=== PATIENT | female | born 1940 | race Caucasian/White ===

== ENCOUNTER → 2018-01-09 08:53 | Outpatient (CLI) | payer MEDICARE, BC, SELFPAY ==
--- NOTE | 2018-01-09 09:03 | XR_ITS ---
EXAM: XR thoracic spine 3V HISTORY: ITS.REASON: H/O BREAST CA,THORACIC AND LUMBAR PAIN COMPARISON: 10/13/2010 FINDINGS: Normal alignment. No fracture or dislocation. No lytic or blastic change. There is mild lower thoracic scoliosis with marginal osteophytes in the lower thoracic spine. Slight wedging noted at T11 chronic. No obvious bony destructive process. IMPRESSION: Thoracic spondylosis, no acute finding. No destructive process evident
--- NOTE | 2018-01-09 09:03 | XR_ITS ---
EXAM: XR lumbar spine min 4V HISTORY: Low back pain, history of breast cancer ORDERING PHYSICIAN: Steven Perez PATIENT AGE: 77 years COMPARISON: 11/10/2015 FINDINGS: Normal alignment. No fracture or dislocation. No lytic or blastic change. Mild dextroscoliosis. Degenerative disc disease L4-L5 and L5-S1 with small anterior osteophytes at L4, L5, and S1. Mild facet arthritic changes at L4-5 and L5-S1. No obstructive process apparent. Unremarkable SI joints. IMPRESSION: Lumbar spondylosis with mild scoliosis, no acute finding
== END ==
PROVIDERS: PCP Internal Medicine; Visit Provider Internal Medicine
DX: M54.6 Pain in thoracic spine (principal); M54.5 Low back pain; Z85.3 Personal history of malignant neoplasm of breast
CPT/HCPCS: 72072; 72110

== ENCOUNTER → 2018-02-10 08:02 | Outpatient (POV) | payer MEDICARE, BC, SELFPAY ==
[2018-02-10 09:46] LABS: Alanine Aminotransferase 19 U/L (12-78); Albumin Level 4.1 gm/dL (3.4-5.0); Albumin/Globulin Ratio 1.4 (1.1-1.8); Alkaline Phosphatase 71 U/L (46-116); Anion Gap 12.1 mEq/L (5-15); Aspartate Amino Transferase 17 U/L (15-37); Bilirubin,Total 0.5 mg/dL (0.2-1.0); Blood Urea Nitrogen 12 mg/dL (7-18); Calcium 9.5 mg/dL (8.5-10.1); Carbon Dioxide 29 mmol/L (21.0-32.0); Chloride 104 mmol/L (98-107); Creatinine,Serum 0.76 mg/dL (0.55-1.02); Estimated Glomerular Filt Rate 74 ml/min (>60); GFR (African American) 89 ML/MIN (>60); Glucose 92 mg/dL (74-106); Potassium 4.1 mmoL/L (3.5-5.1); Sodium 141 mmol/L (136-145); Total Protein,Serum 7.1 gm/dL (6.4-8.2)
[2018-02-10 10:18] LABS: Basophils % 0.5 % (0.1-2.0); Eosinophils # 0.1 K/mm3 (0.0-0.4); Eosinophils % 2.5 % (0.1-12.0); Hemoglobin 13.3 g/dL (12.2-16.2); Lymphocytes # 1.3 K/mm3 (0.7-4.5); Mean Corpuscular HGB Conc 33.3 g/dL (31.8-35.4); Mean Corpuscular Hemoglobin 29.9 pg (27.0-31.2); Mean Corpuscular Volume 89.8 fl (81-99); Mean Platelet Volume 7.2 fl (7.4-10.4); Monocytes # 0.3 K/mm3 (0.1-1.0); Neutrophils % 55.1 % (37.0-80.0); Platelet Count 257 K/mm3 (142-424); Red Blood Count 4.45 M/mm3 (4.20-5.40); Red Cell Distribution Width 13.4 % (11.5-17.5); White Blood Count 3.7 K/mm3 (4.8-10.8)
== END ==
PROVIDERS: Visit Provider Nurse Practitioner Acute Care
DX: B18.2 Chronic viral hepatitis C (principal)
CPT/HCPCS: 36415; 80053; 85025; 87522

== ENCOUNTER → 2018-02-28 10:15 | Outpatient (CLI) | payer MEDICARE, BC, SELFPAY ==
[2018-03-05 06:15] LABS: ALT (SGPT) P5P 10 IU/L (0-40); Alpha 2-Macroglobulins, Qn 256 mg/dL (110-276); Apolipoprotein A-1 166 mg/dL (116-209); Bilirubin, Total 0.3 mg/dL (0.0-1.2); GGT 8 IU/L (0-60); Haptoglobin 109 mg/dL (34-200); Necroinflammat Activity Grade A0-No activity (.); Necroinflammat Activity Score 0.02 (0.00-0.17)
== END ==
PROVIDERS: Visit Provider Nurse Practitioner Acute Care
DX: B18.2 Chronic viral hepatitis C (principal)
CPT/HCPCS: 36415

== ENCOUNTER → 2018-04-08 14:30 | Outpatient (CLI) | payer MEDICARE, BC, SELFPAY ==
--- NOTE | 2018-04-08 14:32 | MR_ITS ---
MR shoulder LT wo con HISTORY:Left shoulder pain with limited range of motion ITS.REASON: LEFT SHOULDER PAIN ORDERING PHYSICIAN: Steven Perez PATIENT AGE: 77 years Comparison: None TECHNIQUE: Standard multiplanar multiecho sequences are performed without contrast. FINDINGS: There is full thickness tear of the anterior aspect of the supraspinatus tendon with retraction of the musculotendinous fibers. The posterior aspect of the supraspinatus tendon does appear intact. The subscapularis, infraspinatus, and teres minor tendons appear intact. No labral tear. The bicipital tendon is in place. Small amount fluid in the subdeltoid region and subacromial area. Mild hypertrophic changes are present at the acromioclavicular joint with hypertrophic change along the inferior surface of the acromion with subacromial stenosis. No fracture or dislocation. Increased T2 signal involving the acromioclavicular joint. There are osteoarthritic changes of the glenohumeral joint. There is a small amount fluid in the shoulder joint. IMPRESSION: 1. Full-thickness tear involves the anterior aspect of the supraspinatus tendon with mild retraction of the musculotendinous fibers 2. 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
== END ==
PROVIDERS: Family Provider Internal Medicine; Visit Provider Internal Medicine
DX: M25.512 Pain in left shoulder (principal)
CPT/HCPCS: 73221

== ENCOUNTER → 2018-05-22 09:00 | Outpatient (CLI) | payer MEDICARE, BC, SELFPAY ==
--- NOTE | 2018-05-22 09:04 | XR_ITS ---
XR shoulder LT min 2V HISTORY: ITS.REASON: left shoulder pain ORDERING PHYSICIAN: Gerard Helm MD PATIENT AGE: 77 years Comparison: 04/15/2015 FINDINGS: Mild osteoarthritic changes are present at the glenohumeral joint. There is a type II acromium curving distally with mild subacromial stenosis. No fracture or dislocation. No other significant anomalies. IMPRESSION: Type II acromion with subacromial stenosis and osteoarthritic change of the glenohumeral joint
== END ==
PROVIDERS: PCP Internal Medicine; Visit Provider Orthopaedic Surgery
DX: M25.512 Pain in left shoulder (principal)
CPT/HCPCS: 73030

== ENCOUNTER → 2019-10-13 13:46 | Outpatient (CLI) | payer MEDICARE, BC, SELFPAY ==
--- NOTE | 2019-10-13 13:55 | XR_ITS ---
PROCEDURE: XR CHEST 2V CLINICAL HISTORY: dyspnea COMPARISON: No exams were available for comparison FINDINGS: The cardiomediastinal silhouette and pulmonary vascularity are within normal limits. The lungs are clear without infiltrates, suspicious nodules, or pleural effusions. Surgical clips are present along the left hemithorax laterally and left axillary region. There is mild thoracic curvature convex left and lumbar curvature convex right IMPRESSION: No acute findings. Dictated by: Viktor German MD 10/13/2019 14:48 Electronically signed by Viktor German MD in [place] 10/13/2019 14:48
== END ==
PROVIDERS: PCP Internal Medicine; Visit Provider Physician Assistant
DX: R06.00 Dyspnea, unspecified (principal); R07.9 Chest pain, unspecified
CPT/HCPCS: 71046

== ENCOUNTER → 2019-10-19 12:51 | Outpatient (CLI) | payer MEDICARE, BC, SELFPAY ==
--- NOTE | 2019-10-19 12:52 | CA_ITS ---
APPROVED REPORT EXAM: Comprehensive 2D, Doppler, and color-flow Echocardiogram Best Worker: Darlene Cespedes RVT Ht: 5 ft 0 in Wt: 124lbs BSA: 1.52 BP: 124/69 mmHg Indications: Chest Pain, Shortness of Breath,Lt mastectomy-breast ca,Hepatitis M-Mode Dimensions RVDd 2.00 cm (0.9-2.6) LVDd 4.00 cm (3.5-5.7) LVDs 2.93 cm (3.5-5.7) IVSd 1.14 cm (0.6-1.1) PWd 0.93 cm (0.6-1.1) EF (Teich) 52.90% FS 26.80% EDV (Teich) 70.00 mL ESV (Teich) 33.00 mL LV Diastology E/A Ratio 0.83 Mitral Valve MV A Velocity 63.00 (40-130 cm/s) Left Ventricle Left atrium is normal size, left ventricle is normal size, left ventricle wall thickness is upper limit of the normal, there is preserved left ventricular systolic function, visually estimated ejection fraction 55% with no regional wall motion abnormality. Grade 1 diastolic dysfunction seen without tissue Doppler evidence of raise left atrial pressure. Right Ventricle Right atrium is normal size, right ventricle is qualitatively mildly enlarged with normal contractility. Aortic Valve Aortic valve is minimally thickened and fibrosed, there is no aortic stenosis, there is mild aortic insufficiency. Mitral Valve Mitral valve is grossly normal, there is mild mitral regurgitation. Tricuspid Valve Tricuspid valve is grossly normal, there is mild tricuspid regurgitation, calculated right ventricular systolic pressure is within normal range. Pulmonic Valve Pulmonic valve is poorly visualized. Great Vessels Aortic root is normal size. Pericardium No significant pericardial effusion noted. Conclusion 1. Normal left ventricular size, preserved left ventricular systolic function, visually estimated ejection fraction 55% with no regional wall motion abnormality, grade 1 diastolic dysfunction seen without tissue Doppler evidence of raise left atrial pressure. 2. Qualitatively mildly enlarged right ventricle with normal contractility. 3. Mild aortic, mild mitral and tricuspid regurgitation. Calculated right ventricular systolic pressure is within normal range. 4. No significant pericardial effusion noted. Electronically signed by : Bebo Hays, 10/20/2019 06:50:28
== END ==
PROVIDERS: PCP Internal Medicine; Visit Provider Physician Assistant
DX: R06.00 Dyspnea, unspecified (principal); R07.9 Chest pain, unspecified
CPT/HCPCS: 93306

== ENCOUNTER → 2020-04-11 08:37 | Outpatient (CLI) | payer MEDICARE, BC, SELFPAY ==
[2020-04-11 09:20] LABS: Basophils % 0.3 % (0.1-2.0); Eosinophils # 0.1 K/mm3 (0.0-0.4); Eosinophils % 1.8 % (0.1-12.0); Hematocrit 37.6 % (37.0-47.0); Hemoglobin 12.4 g/dL (12.2-16.2); Lymphocytes # 1.4 K/mm3 (0.7-4.5); Lymphocytes % 29.6 % (10-50); Mean Corpuscular HGB Conc 33.1 g/dL (31.8-35.4); Mean Corpuscular Hemoglobin 29.8 pg (27.0-31.2); Mean Corpuscular Volume 90.2 fl (81-99); Mean Platelet Volume 7.4 fl (7.4-10.4); Monocytes # 0.3 K/mm3 (0.1-1.0); Monocytes % 5.4 % (1.7-9.3); Platelet Count 257 K/mm3 (142-424); Red Blood Count 4.17 M/mm3 (4.20-5.40); Red Cell Distribution Width 13.9 % (11.5-17.5); White Blood Count 4.7 K/mm3 (4.8-10.8)
[2020-04-11 10:01] LABS: Chloride 100 mmol/L (98-107); Potassium 4.4 mmoL/L (3.5-5.1); Sodium 137 mmol/L (136-145)
[2020-04-11 10:04] LABS: Alanine Aminotransferase 11 U/L (12-78); Albumin Level 4.2 g/dl (3.5-5.0); Albumin/Globulin Ratio 1.7 (1.1-1.8); Alkaline Phosphatase 70 U/L (38-126); Anion Gap 11.4 mEq/L (5-15); Aspartate Amino Transferase 24 U/L (14-36); Bilirubin,Total 0.5 mg/dl (0.2-1.3); Blood Urea Nitrogen 14 mg/dl (7-17); Carbon Dioxide 30 mmol/L (22.0-30.0); Cholesterol 196 mg/dl (140-200); Estimated Glomerular Filt Rate 81 ml/min (>60); GFR (African American) 97 ML/MIN (>60); Globulin 2.5 g/dL (1.3-3.2); Total Protein,Serum 6.7 g/dl (6.3-8.2); Triglycerides 64 mg/dl (30-150); VLDL Cholesterol 13 mg/dL (0-40)
[2020-04-11 10:05] LABS: Calcium 9.7 mg/dl (8.4-10.2); Chol/HDL Ratio 2.1 (1-3.5); Glucose 91 mg/dl (74-100); HDL Cholesterol 93 mg/dl (40-60)
[2020-04-11 10:16] LABS: Direct LDL Cholesterol 84.92 mg/dL (100-129)
== END ==
PROVIDERS: Visit Provider Internal Medicine
DX: G60.9 Hereditary and idiopathic neuropathy, unspecified (principal); M81.0 Age-related osteoporosis without current pathological fracture; Z86.19 Personal history of other infectious and parasitic diseases; Z79.899 Other long term (current) drug therapy
CPT/HCPCS: 36415; 80053; 80061; 85025

== ENCOUNTER 2020-10-21 11:04 | Emergency (ER) | payer MEDICARE, BC, SELFPAY ==
[2020-10-21 11:29] VITALS: BP 93/55; PULSE 92; RESP 20; TEMP 37.4; O2SAT 95; BMI 23.4
[2020-10-21 11:35] VITALS: BP 94/47; PULSE 92; RESP 18; TEMP 37.4; O2SAT 95; BMI 21.9
--- NOTE | 2020-10-21 11:44 | XR_ITS ---
PROCEDURE: XR CHEST 2V CLINICAL HISTORY: cough COMPARISON: CR XR CHEST 2V from 10/13/2019 FINDINGS: The cardiomediastinal silhouette and pulmonary vascularity are within normal limits. There is patchy infiltrate in the left lower lobe. Thoracic scoliosis convex left. Surgical clips overlying the left lower chest laterally. IMPRESSION: Left lower lobe pneumonia Dictated by: Viktor eGrman MD 10/21/2020 13:30 Viktor German MD in [place] 10/21/2020 13:30
[2020-10-21 12:26] LABS: UTC Influenza A Antigen Negative (Negative); UTC Influenza B Antigen Negative (Negative)
--- NOTE | 2020-10-21 12:34 | HMH.EDUTC ---
[facility] [place] Impression: LLL pneumonia Qualifiers: Pneumonia type: due to unspecified organism Qualified Code(s): J18.9 - Pneumonia, unspecified organism Disposition: Home, Self-Care Condition on Discharge: Good Instructions: DI for Pneumonia -- Adult Additional Instructions: Your COVID test is pending. Please isolate yourself until those results are received. I have sent medicine to treat your pneumonia and nausea. If at anytime, you feel worse or you do not feel as if you are improving, return to the ER. Follow up with Dr Perez next week. Prescriptions: Ondansetron [Ondansetron Odt 8mg Tab] 8 mg PO TIDP PRN 10 Days #20 tab PRN Reason: Nausea Transmission Status: Pending to [facility] #[id number] predniSONE [Prednisone 20mg Tab] 20 mg PO BID 5 Days #10 tab Transmission Status: Pending to [facility] #[id number] Azithromycin [Z-Nixon 250mg Tab] 250 mg PO DIRECTED #6 tab Transmission Status: Pending to [facility] #[id number] Referrals: Steven Perez [Primary Care Provider] - Time of Disposition: 13:46 Medical Decision Making - Lewis Inquiry Pt receiving controlled substance: No Vital Signs: 10/21/20 11:29 10/21/20 11:35 Temperature 99.4 F 99.4 F Temperature Source Oral Oral Pulse Rate [Left Radial] 92 H 92 H Respiratory Rate 20 18 Blood Pressure [Right Arm] 93/55 L 94/47 L Blood Pressure Mean [Right Arm] 67 62 Blood Pressure Source [Right Arm] Automatic Cuff Automatic Cuff Blood Pressure Position [Right Arm] Sitting Sitting 02 Sat by Pulse Oximetry 95 95 Oxygen Delivery Method Room Air Room Air - Lab Data Lab results reviewed: Yes: I reviewed the patient's lab results. Lab Results 10/21/20 11:45: Influenza Type A Ag Negative, Influenza Type B Ag Negative 10/21/20 12:14: WBC 5.3, RBC 4.00 L, Hgb 11.7 L, Hct 34.5 L, MCV 86.3, MCH 29.3, MCHC 33.9, RDW 13.8, Plt Count 282, MPV 7.6, Neut % (Auto) 84.6 H, Lymph % (Auto) 11.5, [place] % (Auto) 3.5, Eos % (Auto) 0.2, Baso % (Auto) 0.1, Neut # (Auto) 4.5, Lymph # (Auto) 0.6 L, [place] # (Auto) 0.2, Eos # (Auto) 0.0, Baso # (Auto) 0.0 10/21/20 12:14: Sodium 132 L, Potassium 4.0, Chloride 98, Carbon Dioxide 27, Anion Gap 11.0, BUN 18 H, Creatinine 0.80, Estimated Creat Clear 38, Estimated GFR 69, Est GFR ( Amer) 83, Glucose 123 H, Calcium 9.1 Result diagrams: 10/21/20 12:14 10/21/20 12:14 Orders (Tests/Meds): ED MEDICATIONS Generic Name Dose Route Start Last Admin Trade Name Freq PRN Reason Stop Dose Admin Sodium Chloride 1,000 mls @ 999 mls/hr 10/21/20 12:15 10/21/20 12:10 Sod Chlor 0.9% 1000ml Bag IV 10/21/20 13:15 999 mls/hr .Q1H1M KRISTEN Administration ORDERS Category Date Time Status Covid-19 Nasal PCR Sendout P&C Stat Lab 10/21/20 11:54 Received - Radiology Data #1 Image(s): Chest Image Reviewed: Yes I have reviewed radiologist's interpretation Preliminary Findings: Abnormal (LLL pneumonia) [facility] [place] - General Stated complaint: no appetite, weakness Time Seen by Provider: 10/21/20 12:34 Mode of Arrival: Ambulatory Source of Information: Patient, Relative Limitations: No Limitations Description of Symptoms (Recalled from Triage Doc. by RN): PATIENT C/O DECREASED APPETITE AND FLUID INTAKE, SOA, NAUSEA, AND FEELING BAD X 1 WEEK. REPORTS SHE WAS EXPOSED TO COVID RECENTLY HEENT Symptoms (Recalled from RN notes): No Resp Symptoms (Recalled from RN notes): No Skin Symptoms (Recalled from RN notes): No MS Symptoms (Recalled from RN notes): No Functional Status (Recalled from RN notes): WNL - History of Present Illness Provider Complaint: Patient states that she has felt poorly for about a week. Her sister was diagnosed with COVID a few weeks ago and is still in the hospital. States that she has no appetite and feels weak. Her back hurts. She denies ear pain or sinus pain or sore throat. Has nausea, but no vomiting or diarrhea. Productive cough. Onset (ago): week(s) (1)
[2020-10-21 12:44] LABS: Basophils % 0.1 % (0.1-2.0); Eosinophils % 0.2 % (0.1-12.0); Hematocrit 34.5 % (37.0-47.0); Hemoglobin 11.7 g/dL (12.2-16.2); Lymphocytes # 0.6 K/mm3 (0.7-4.5); Lymphocytes % 11.5 % (10-50); Mean Corpuscular HGB Conc 33.9 g/dL (31.8-35.4); Mean Corpuscular Hemoglobin 29.3 pg (27.0-31.2); Mean Corpuscular Volume 86.3 fl (81-99); Mean Platelet Volume 7.6 fl (7.4-10.4); Monocytes # 0.2 K/mm3 (0.1-1.0); Monocytes % 3.5 % (1.7-9.3); Neutrophils # 4.5 K/mm3 (1.8-7.8); Neutrophils % 84.6 % (37.0-80.0); Platelet Count 282 K/mm3 (142-424); Red Cell Distribution Width 13.8 % (11.5-17.5); White Blood Count 5.3 K/mm3 (4.8-10.8)
[2020-10-21 12:52] LABS: Chloride 98 mmol/L (98-107)
[2020-10-21 12:53] LABS: Sodium 132 mmol/L (136-145)
[2020-10-21 12:56] LABS: Blood Urea Nitrogen 18 mg/dl (7-17); Calcium 9.1 mg/dl (8.4-10.2); Carbon Dioxide 27 mmol/L (22.0-30.0); Creatinine Clearance Estimated 38 mL/min (50-200); Estimated Glomerular Filt Rate 69 ml/min (>60); GFR (African American) 83 ML/MIN (>60); Glucose 123 mg/dl (74-100)
[2020-10-21 14:33] VITALS: BP 94/47; PULSE 92; RESP 18; TEMP 37.4; O2SAT 95
[2020-10-22 10:07] LABS: Covid-19 Nasal PCR Sendout P&C POSITIVE
--- NOTE | 2020-10-22 12:14 | SUR.OPER ---
PT NOTIFIED OF POSITIVE RESULT
== END 2020-10-21 14:35 | disposition home or self-care (01) ==
PROVIDERS: Emergency Provider Physician Assistant; PCP Internal Medicine
DX: U07.1 COVID-19 (principal); J12.82 Pneumonia due to coronavirus disease 2019; M81.0 Age-related osteoporosis without current pathological fracture
CPT/HCPCS: G0463; 71046; 80048; 85025; 87804; 96365; 96366; 96375; 99202; J2405; U0004

== ENCOUNTER → 2020-11-30 11:05 | Outpatient (CLI) | payer MEDICARE, BC, SELFPAY ==
--- NOTE | 2020-11-30 11:37 | XR_ITS ---
PROCEDURE: XR CHEST 2V CLINICAL HISTORY: F/U TO PNEUMONIA COMPARISON: CR XR CHEST 2V from 10/13/2019 CR XR CHEST 2V from 10/21/2020 FINDINGS: The cardiomediastinal silhouette and pulmonary vascularity are within normal limits. The lungs are clear without infiltrates, suspicious nodules, or pleural effusions. Surgical clips are present along the left lateral hemithorax. There has been prior left mastectomy. There are degenerative changes in the thoracic spine with mild thoracic scoliosis convex left IMPRESSION: No acute findings. Dictated by: Viktor German MD 11/30/2020 16:40 Viktor German MD in [place] 11/30/2020 16:40
--- NOTE | 2020-11-30 12:02 | ECG_ITS ---
APPROVED REPORT Exam: Resting ECG HR:77 bpm ECG Measurements Heart Rate 77 AXES IN 146 P 65 QRSd 74 QRS 68 QT 362 T 74 QTc 409 Conclusion Normal sinus rhythm Normal ECG Electronically signed by : Steven Perez, 12/02/2020 09:01:33
[2020-11-30 12:21] LABS: Basophils % 0.6 % (0.1-2.0); Eosinophils # 0.1 K/mm3 (0.0-0.4); Eosinophils % 1.5 % (0.1-12.0); Hemoglobin 11.7 g/dL (12.2-16.2); Lymphocytes # 1.6 K/mm3 (0.7-4.5); Lymphocytes % 34.5 % (10-50); Mean Corpuscular HGB Conc 30.9 g/dL (31.8-35.4); Mean Corpuscular Hemoglobin 28.3 pg (27.0-31.2); Mean Corpuscular Volume 91.6 fl (81-99); Mean Platelet Volume 7.5 fl (7.4-10.4); Monocytes # 0.3 K/mm3 (0.1-1.0); Monocytes % 6.4 % (1.7-9.3); Neutrophils # 2.7 K/mm3 (1.8-7.8); Neutrophils % 57.1 % (37.0-80.0); Platelet Count 283 K/mm3 (142-424); Red Blood Count 4.15 M/mm3 (4.20-5.40); White Blood Count 4.7 K/mm3 (4.8-10.8)
[2020-11-30 13:42] LABS: Chloride 103 mmol/L (98-107); Potassium 4.6 mmoL/L (3.5-5.1); Sodium 137 mmol/L (136-145)
[2020-11-30 13:45] LABS: Alanine Aminotransferase 8 U/L (12-78); Albumin Level 4.3 g/dl (3.5-5.0); Albumin/Globulin Ratio 1.5 (1.1-1.8); Alkaline Phosphatase 86 U/L (38-126); Anion Gap 10.6 mEq/L (5-15); Aspartate Amino Transferase 27 U/L (14-36); Bilirubin,Total 0.5 mg/dl (0.2-1.3); Blood Urea Nitrogen 10 mg/dl (7-17); Carbon Dioxide 28 mmol/L (22.0-30.0); Estimated Glomerular Filt Rate 96 ml/min (>60); GFR (African American) 116 ML/MIN (>60); Globulin 2.9 g/dL (1.3-3.2); Total Protein,Serum 7.2 g/dl (6.3-8.2)
[2020-11-30 13:46] LABS: Calcium 9.7 mg/dl (8.4-10.2); Glucose 92 mg/dl (74-100)
== END ==
PROVIDERS: PCP Internal Medicine; Visit Provider Internal Medicine
DX: Z01.818 Encounter for other preprocedural examination (principal); Z86.16 Personal history of COVID-19
CPT/HCPCS: 36415; 71046; 80053; 85025; 93005

== ENCOUNTER → 2022-01-08 12:46 | Outpatient (CLI) | payer MEDICARE, BC, SELFPAY ==
[2022-01-08 14:02] LABS: Basophils % 0.5 % (0.1-2.0); Eosinophils # 0.1 K/mm3 (0.0-0.4); Eosinophils % 1.9 % (0.1-12.0); Hematocrit 37.4 % (37.0-47.0); Hemoglobin 12.1 g/dL (12.2-16.2); Lymphocytes # 1.3 K/mm3 (0.7-4.5); Lymphocytes % 28.8 % (10-50); Mean Corpuscular HGB Conc 32.5 g/dL (31.8-35.4); Mean Corpuscular Hemoglobin 29.7 pg (27.0-31.2); Mean Corpuscular Volume 91.4 fl (81-99); Mean Platelet Volume 9.2 fl (7.4-10.4); Monocytes # 0.3 K/mm3 (0.1-1.0); Monocytes % 6.9 % (1.7-9.3); Neutrophils # 2.8 K/mm3 (1.8-7.8); Neutrophils % 61.9 % (37.0-80.0); Platelet Count 281 K/mm3 (142-424); Red Blood Count 4.09 M/mm3 (4.20-5.40); Red Cell Distribution Width 14.6 % (11.5-17.5); White Blood Count 4.5 K/mm3 (4.8-10.8)
[2022-01-08 14:10] LABS: Alanine Aminotransferase 13 U/L (12-78); Albumin Level 4.3 g/dl (3.5-5.0); Albumin/Globulin Ratio 1.9 (1.1-1.8); Alkaline Phosphatase 76 U/L (38-126); Anion Gap 10.5 mEq/L (5-15); Aspartate Amino Transferase 30 U/L (14-36); Bilirubin,Total 0.5 mg/dl (0.2-1.3); Blood Urea Nitrogen 16 mg/dl (7-17); Calcium 9.2 mg/dl (8.4-10.2); Carbon Dioxide 30 mmol/L (22.0-30.0); Chloride 101 mmol/L (98-107); Chol/HDL Ratio 2.5 (1-3.5); Cholesterol 201 mg/dl (140-200); Estimated Glomerular Filt Rate 80 ml/min (>60); GFR (African American) 97 ML/MIN (>60); Globulin 2.3 g/dL (1.3-3.2); Glucose 75 mg/dl (74-100); HDL Cholesterol 80 mg/dl (40-60); Potassium 4.5 mmoL/L (3.5-5.1); Sodium 137 mmol/L (136-145); Total Protein,Serum 6.6 g/dl (6.3-8.2); Triglycerides 84 mg/dl (30-150); VLDL Cholesterol 17 mg/dL (0-40)
[2022-01-08 14:20] LABS: Direct LDL Cholesterol 71.74 mg/dL (100-129)
[2022-01-08 14:26] LABS: 25-OH Vitamin D, Total 49.7 ng/mL (30-100)
[2022-01-08 15:00] LABS: Vitamin B12 304 pg/mL (239-931)
== END ==
PROVIDERS: Visit Provider Internal Medicine
DX: E78.5 Hyperlipidemia, unspecified (principal); E55.9 Vitamin D deficiency, unspecified; M81.0 Age-related osteoporosis without current pathological fracture; G60.9 Hereditary and idiopathic neuropathy, unspecified; Z85.3 Personal history of malignant neoplasm of breast
CPT/HCPCS: 80053; 80061; 82306; 82607; 85025

== ENCOUNTER 2022-03-31 11:11 | Emergency (ER) | payer MEDICARE, BC, SELFPAY ==
--- NOTE | 2022-03-31 11:23 | HMH.EDUTC ---
[facility] [place] Clinical Impression: Viral syndrome, Bronchitis Pharyngitis Qualifiers: Pharyngitis/tonsillitis etiology: unspecified etiology Qualified Code(s): J02.9 - Acute pharyngitis, unspecified Disposition: Home, Self-Care Condition on Discharge: Good Instructions: DI for Pharyngitis/Tonsillopharyngitis -- Adult, DI for COVID-19 (Suspected or Confirmed ), Preventing the Spread of Coronavirus Discharge Instructions Additional Instructions: Drink plenty of fluids. Take tylenol or ibuprofen for pain or fever. Take the medications as directed. Follow up with your regular doctor. GO TO THE ER FOR ANY WORSENING SYMPTOMS Quarantine until you know the results of your covid-19 test. Notify your school or workplace of your results and follow their instructions regarding return to work/school. Prescriptions: Benzonatate [Benzonatate 100mg cap] 100 mg PO TIDP PRN #30 cap PRN Reason: Cough Transmission Status: Received by [facility] #[id number] methylPREDNISolone [Medrol] 4 mg PO DIRECTED 6 Days #21 packet Transmission Status: Received by [facility] #[id number] Azithromycin [Z-Nixon 250mg Tab*] 250 mg PO UD DOSE PK #6 tab Transmission Status: Received by [facility] #[id number] Referrals: Steven Perez MD [Primary Care Provider] - Medical Decision Making - Medical Records Medical records reviewed: No: I reviewed the patient's medical records. - Lewis Inquiry Pt receiving controlled substance: No Vital Signs: 03/31/22 11:35 03/31/22 12:41 Temperature 98.2 F 98.2 F Temperature Source Oral Pulse Rate 81 Pulse Rate [Left] 81 Respiratory Rate 16 16 Blood Pressure 113/59 L Blood Pressure [Right Arm] 113/59 L Blood Pressure Mean [Right Arm] 77 02 Sat by Pulse Oximetry 96 - Lab Data Lab results reviewed: Yes: I reviewed the patient's lab results. Lab Results 03/31/22 11:28: Chlamy pneumoniae PCR Not detected, Adenovirus (PCR) Not detected, B. pertussis DNA (PCR) Not detected, Coronavirus OC43 (PCR) Not detected, Coronavirus HKU1 (PCR) Not detected, Coronavirus 229E (PCR) Not detected, SARS-CoV-2 (PCR) Not detected, Coronavirus NL63 (PCR) Not detected, Human Metapneumovir PCR Not detected, Influenza A (H1) PCR Not detected, Influ A (H1N1/09) PCR Not detected, Influenza A (H3) PCR Not detected, Influenza Type A (PCR) Not detected, Influenza Type B (PCR) Not detected, M. pneumoniae (PCR) Not detected, Parainfluenza 1 (PCR) Not detected, Parainfluenza 2 (PCR) Not detected, Parainfluenza 3 (PCR) Not detected, Parainfluenza 4 (PCR) Not detected, RSV (PCR) Not detected, Entero/Rhino (PCR) Not detected 03/31/22 11:28: Group A Strep Rapid Negative 03/31/22 13:43: Urine Color Dark yellow, Urine Appearance Clear, Urine pH 6.0, Ur Specific [place] 1.020, Urine Protein 1+, Urine Glucose (UA) Negative, Urine Ketones Negative, Urine Blood Trace, Urine Nitrate Negative, Urine Bilirubin Trace, Urine Urobilinogen 0.2, Ur Leukocyte Esterase Trace Orders (Tests/Meds): ORDERS Category Date Time Status Strep Screen Confirmation Stat Micro 03/31/22 11:28 Received [facility] [place] - General Stated complaint: fever, cough, sore throat, lower back pain Time Seen by Provider: 03/31/22 11:23 - History of Present Illness Provider Complaint: She c/o sore throat and nonproductive cough for the past 2 day. - Related Data Home Medications Medication Instructions Recorded Confirmed hydrocodone 7.5 mg-acetaminophen 1 tab PO Q6H PRN 05/22/18 10/21/20 325 mg tablet zolpidem 10 mg tablet 10 mg PO QHS PRN tab 10/13/19 10/21/20 Previous Rx's Medication Instructions Recorded Azithromycin [Z-Nixon 250mg Tab] 250 mg PO DIRECTED #6 tab 10/21/20 Ondansetron [Ondansetron Odt 8mg 8 mg PO TIDP PRN 10 Days #20 tab 10/21/20 Tab] predniSONE [Prednisone 20mg 20 mg PO BID 5 Days #10 tab 10/21/20 Tab] Azithromycin [Z-Nixon 250mg Tab*] 250 mg PO UD DOSE PK #6 tab 07
--- NOTE | 2022-03-31 11:25 | XR_ITS ---
PROCEDURE INFORMATION: Exam: XR Chest Exam date and time: 03/31/2022 11:58 AM Age: 81 years old Clinical indication: Cough and fever TECHNIQUE: Imaging protocol: Radiologic exam of the chest. Views: 2 views. COMPARISON: CR XR CHEST 2V 11/30/2020 11:39 AM FINDINGS: Lungs: No focal airspace disease. Pleural spaces: Unremarkable. No pleural effusion. No pneumothorax. Heart/Mediastinum: Cardiomediastinal silhouette is within normal limits. Bones/joints: Unremarkable. IMPRESSION: No acute cardiopulmonary abnormality.
[2022-03-31 11:35] VITALS: BP 113/59; PULSE 81; RESP 16; TEMP 36.8; O2SAT 96; BMI 24.7
[2022-03-31 12:41] VITALS: BP 113/59; PULSE 81; RESP 16; TEMP 36.8
[2022-03-31 12:44] LABS: Adenovirus,PCR Not Detected (NotDetected); Bordetella Pertussis Not Detected (NotDetected); Chlamydophila Pneumoniae, PCR Not Detected (NotDetected); Coronavirus 19, PCR Not Detected (NotDetected); Coronavirus 229E Not Detected (NotDetected); Coronavirus NL63 Not Detected (NotDetected); Coronavirus OC43 Not Detected (NotDetected); Coronovirus HKU1,PCR Not Detected (NotDetected); Human Metapneumovirus Not Detected (NotDetected); Influenza A, PCR Not Detected (NotDetected); Influenza AH1, 2009 Not Detected (NotDetected); Influenza AH1, PCR Not Detected (NotDetected); Influenza AH3,PCR Not Detected (NotDetected); Influenza B, PCR Not Detected (NotDetected); Mycoplasma Pneumoniae, PCR Not Detected (NotDetected); Parainfluenza 1, PCR Not Detected (NotDetected); Parainfluenza 2, PCR Not Detected (NotDetected); Parainfluenza 3, PCR Not Detected (NotDetected); Parainfluenza 4, PCR Not Detected (NotDetected); Respiratory Syncytial Virus Not Detected (NotDetected); Rhinovirus/Enterovirus Not Detected (NotDetected)
[2022-03-31 12:53] LABS: Strep Scrn Group A (Rapid) Negative (Negative)
[2022-03-31 13:45] LABS: Apearance,Urine Clear (Clear); Bilirubin,Urine Trace (Negative); Blood, Urine Trace (Negative); Color,Urine Dark Yellow (Yellow); Glucose,Urine (UA) Negative (Negative); Ketones,Urine Negative (Negative); Protein,Urine 1+ (Negative)
[2022-03-31 13:46] LABS: UTC Leukocyte Esterase,Urine Trace (Negative); UTC Nitrate,Urine Negative (Negative); Urobilinogen,Urine 0.2 EU/dl (0.2)
== END 2022-03-31 12:42 | disposition home or self-care (01) ==
PROVIDERS: Emergency Provider Nurse Practitioner Family; PCP Internal Medicine
DX: J40 Bronchitis, not specified as acute or chronic (principal); B34.9 Viral infection, unspecified
CPT/HCPCS: 71046; 81003; 87430; 87581; 87632; 87798; 99212; C9803; G0463; U0003; U0005

== ENCOUNTER 2022-04-15 13:30 | Observation (INO) | payer MEDICARE, BC, SELFPAY ==
[2022-04-15] VITALS (9 sets, daily range): BP systolic 115–135; BP diastolic 50–62; PULSE 78–90; RESP 16–20; TEMP 36.6–37.1; O2SAT 96–99; BMI 24.7; BMI 25.0
--- NOTE | 2022-04-15 13:53 | XR_ITS ---
PROCEDURE INFORMATION: Exam: XR Chest Exam date and time: 04/15/2022 2:11 PM Age: 81 years old Clinical indication: Chest wall pain TECHNIQUE: Imaging protocol: Radiologic exam of the chest. Views: 1 view. COMPARISON: CR XR CHEST 2V 03/31/2022 11:58 AM FINDINGS: Lungs: Hyperlucent changes are demonstrated. Increase in the lung volumes is demonstrated. Mild regions of bronchiectasis demonstrated at the lung bases. Findings not significantly changed. Pleural spaces: Unremarkable. No pleural effusion. No pneumothorax. Heart/Mediastinum: Unremarkable. No cardiomegaly. Diaphragm: There is flattening of the hemidiaphragms. Bones/joints: Unremarkable. IMPRESSION: Chronic obstructive pulmonary disease. No evidence of acute cardiopulmonary disease.
[2022-04-15 14:01] LABS: Microscopic, Urine URINE MICROSCOPIC (MICROSCOPIC)
--- NOTE | 2022-04-15 14:03 | PC.NURSE ---
Rad at bedside
[2022-04-15 14:05] LABS: Appearance,Urine CLEAR (Clear); Blood, Urine Negative (Negative); Color,Urine YELLOW (Yellow); Glucose,Urine (UA) Negative (Negative); Ketones,Urine Negative (Negative); Leukocyte Esterase,Urine Negative (Negative); Nitrate,Urine POSITIVE (Negative); PH,Urine 5.5 (5.0-8.5); Protein,Urine 1+ (Negative); Specific Gravity, Urine 1.025 (1.005-1.030)
[2022-04-15 14:11] LABS: Bilirubin,Urine 2+ (Negative)
[2022-04-15 14:17] LABS: Bacteria,Urine Trace /lpf; Mucus,Urine Trace /lpf; RBC,Urine Occasional #/hpf (0-3); Squamous Epithelial Cell,Urine Occasional #/hpf (0-5)
[2022-04-15 14:21] LABS: Coronavirus 19, PCR Not Detected (NotDetected); Influenza A, PCR Not Detected (NotDetected); Influenza B, PCR Not Detected (NotDetected)
[2022-04-15 14:22] LABS: Alanine Aminotransferase 80 U/L (12-78); Albumin Level 3.6 g/dl (3.5-5.0); Albumin/Globulin Ratio 1.1 (1.1-1.8); Alkaline Phosphatase 767 U/L (38-126); Anion Gap 10.8 mEq/L (5-15); Aspartate Amino Transferase 116 U/L (14-36); Basophils % 0.2 % (0.1-2.0); Bilirubin,Total 1.9 mg/dl (0.2-1.3); Blood Urea Nitrogen 12 mg/dl (7-17); Calcium 9.1 mg/dl (8.4-10.2); Carbon Dioxide 27 mmol/L (22.0-30.0); Chloride 98 mmol/L (98-107); Creatinine Clearance Estimated 39 mL/min (50-200); Eosinophils # 0.2 K/mm3 (0.0-0.4); Estimated Glomerular Filt Rate 80 ml/min (>60); GFR (African American) 97 ML/MIN (>60); Globulin 3.2 g/dL (1.3-3.2); Glucose 142 mg/dl (74-100); Hematocrit 32.2 % (37.0-47.0); Hemoglobin 10.4 g/dL (12.2-16.2); Lymphocytes # 1.2 K/mm3 (0.7-4.5); Lymphocytes % 13.9 % (10-50); Mean Corpuscular HGB Conc 32.3 g/dL (31.8-35.4); Mean Corpuscular Hemoglobin 28.5 pg (27.0-31.2); Mean Corpuscular Volume 88.4 fl (81-99); Mean Platelet Volume 7.2 fl (7.4-10.4); Monocytes # 0.4 K/mm3 (0.1-1.0); Neutrophils # 6.8 K/mm3 (1.8-7.8); Neutrophils % 78.9 % (37.0-80.0); Platelet Count 385 K/mm3 (142-424); Potassium 3.8 mmoL/L (3.5-5.1); Red Blood Count 3.65 M/mm3 (4.20-5.40); Red Cell Distribution Width 14.1 % (11.5-17.5); Sodium 132 mmol/L (136-145); Total Protein,Serum 6.8 g/dl (6.3-8.2); White Blood Count 8.6 K/mm3 (4.8-10.8)
[2022-04-15 14:24] LABS: Lipase 1569 U/L (23-300)
--- NOTE | 2022-04-15 14:39 | HMH.EDABDPAI ---
ED Disposition Clinical Impression: Pancreatitis, Diverticulitis Disposition: Admitted as Observation Condition on Discharge: Fair - Critical Care Critical Care Time: No Attestation: On 04/15/22, the high probability of a clinically significant, sudden or life threatening deterioration of the following system(s) required my full and direct attention, intervention and personal management. The time I documented below is in addition to time spent performing reported procedures but includes the following listed in this critical care notation. Medical Decision Making - Lewis Inquiry Pt receiving controlled substance: Yes Lewis was queried for this patient: No Reason not queried -: Emergent pt cond-no time Risks and benefits of using a controlled substance: were not discussed with pt by me Vital Signs: 04/15/22 13:32 04/15/22 13:44 04/15/22 16:22 Temperature 98.8 F Temperature Source Oral Pulse Rate 85 79 Pulse Rate [Radial] 90 Respiratory Rate 16 18 18 Blood Pressure 118/50 L 135/58 L Blood Pressure [Right Arm] 118/50 L Blood Pressure Mean 76 83 Blood Pressure Mean [Right Arm] 72 Blood Pressure Source [Right Arm] Blood Pressure Position [Right Arm] Sitting 02 Sat by Pulse Oximetry 98 99 Oxygen Delivery Method Room Air 04/15/22 16:30 04/15/22 17:00 04/15/22 17:30 Temperature Temperature Source Pulse Rate 87 78 78 Pulse Rate [Radial] Respiratory Rate 18 18 18 Blood Pressure 127/60 121/59 L 119/56 L Blood Pressure [Right Arm] Blood Pressure Mean 82 80 73 Blood Pressure Mean [Right Arm] Blood Pressure Source [Right Arm] Blood Pressure Position [Right Arm] 02 Sat by Pulse Oximetry 96 98 97 Oxygen Delivery Method 04/15/22 18:14 Temperature 98.4 F Temperature Source Oral Pulse Rate Pulse Rate [Radial] 89 Respiratory Rate 18 Blood Pressure Blood Pressure [Right Arm] 134/61 Blood Pressure Mean Blood Pressure Mean [Right Arm] 85 Blood Pressure Source [Right Arm] Automatic Cuff Blood Pressure Position [Right Arm] Supine 02 Sat by Pulse Oximetry 98 Oxygen Delivery Method Room Air - Lab Data Lab Results 04/15/22 13:45: Urine Color Yellow, Urine Appearance Clear, Urine pH 5.5, Ur Specific [place] 1.025, Urine Protein 1+, Urine Glucose (UA) Negative, Urine Ketones Negative, Urine Blood Negative, Urine Nitrate Positive, Urine Bilirubin 2+ A, Urine Urobilinogen 4.0, Ur Leukocyte Esterase Negative, Urine RBC Occasional, Urine WBC 3-5, Ur Squamous Epith Cells Occasional, Urine Bacteria Trace, Urine Mucus Trace 04/15/22 14:08: WBC 8.6, RBC 3.65 L, Hgb 10.4 L, Hct 32.2 L, MCV 88.4, MCH 28.5, MCHC 32.3, RDW 14.1, Plt Count 385, MPV 7.2 L, Neut % (Auto) 78.9, Lymph % (Auto) 13.9, [place] % (Auto) 5.0, Eos % (Auto) 2.0, Baso % (Auto) 0.2, Neut # (Auto) 6.8, Lymph # (Auto) 1.2, [place] # (Auto) 0.4, Eos # (Auto) 0.2, Baso # (Auto) 0.0 04/15/22 14:08: Sodium 132 L, Potassium 3.8, Chloride 98, Carbon Dioxide 27, Anion Gap 10.8, BUN 12, Creatinine 0.70, Estimated Creat Clear 39, Estimated GFR 80, Est GFR ( Amer) 97, Glucose 142 H, Calcium 9.1, Total Bilirubin 1.9 H, AST 116 H, ALT 80 H, Alkaline Phosphatase 767 H, Troponin I < 0.01, Total Protein 6.8, Albumin 3.6, Globulin 3.2, Albumin/Globulin Ratio 1.1, Lipase 1569 H 04/15/22 14:16: SARS-CoV-2 (PCR) Not detected, Influenza A Untype (PCR) Not detected, Influenza Type B (PCR) Not detected Result diagrams: 04/15/22 14:08 04/15/22 14:08 Orders (Tests/Meds): ED MEDICATIONS Generic Name Dose Route Start Last Admin Trade Name Freq PRN Reason Stop Dose Admin Hydromorphone HCl 0.5 mg 04/15/22 18:50 Hydromorphone 2mg/Ml Syringe IV 05/15/22 17:33 Q4HP PRN Severe Pain Lactated Ringer's 1,000 mls @ 100 mls/hr 04/15/22 18:50 Lactated Ringer's 1000 Ml Bag IV 05/15/22 17:44 .Q10H KRISTEN Levofloxacin/Dextrose 500 mg in 100 mls @ 100 mls/hr 04/16/22 18:15 Levaquin 500mg/100ml Premix IV 04/29/22 18
[2022-04-15 14:43] LABS: Troponin I < 0.01 ng/ml (0.00-0.034)
--- NOTE | 2022-04-15 15:00 | PC.NURSE ---
WAITING PROGRAM AIDE BACK FROM GI AT
--- NOTE | 2022-04-15 15:08 | PC.NURSE ---
DR VITALE SPOKE WITH DR MCGOVERN AT [facility]
--- NOTE | 2022-04-15 15:10 | CT_ITS ---
PROCEDURE INFORMATION: Exam: CT Abdomen And Pelvis With Contrast Exam date and time: 04/15/2022 3:18 PM Age: 81 years old Clinical indication: Abdominal pain; Acute; Patient HX: History of breast cancer; Additional info: Abd pain// also did delay scan 10mins for liver TECHNIQUE: Imaging protocol: Computed tomography of the abdomen and pelvis with contrast. Radiation optimization: All CT scans at this facility use at least one of these dose optimization techniques: automated exposure control; mA and/or kV adjustment per patient size (includes targeted exams where dose is matched to clinical indication); or iterative reconstruction. Contrast material: ISOVUE; Contrast volume: 75 ml; Contrast route: IV; COMPARISON: ABDPELW/WO CT ABD PELVIS W/WO CONTRAST 11/10/2015 10:30 AM FINDINGS: Lungs: Parenchymal scarring again demonstrated at the right lung base. Liver: Multiple poorly defined low-density mass is demonstrated throughout the liver with delayed incomplete enhancement. Gallbladder and bile ducts: Mild distension of the gallbladder. Intrahepatic biliary dilatation. Similar findings present on the 2016 examination. The persistent prominence of the distal common bile duct. Pancreas: Normal. No ductal dilation. Spleen: Normal. No splenomegaly. Adrenal glands: Normal. No mass. Kidneys and ureters: Normal. No hydronephrosis. Stomach and bowel: Colonic diverticulosis. Demonstration of small amount of free fluid in the pelvis. Mild stranding of the pericolonic mesenteric fat. Findings compatible with diverticulitis. Appendix: No evidence of appendicitis. Intraperitoneal space: See Stomach and bowel finding. Vasculature: Unremarkable. No abdominal aortic aneurysm. Lymph nodes: Unremarkable. No enlarged lymph nodes. Urinary bladder: Unremarkable as visualized. Reproductive: Unremarkable as visualized. Bones/joints: Osteopenia. Advanced changes of disc degeneration L4-L5. Subtle heterogeneity of the bone marrow. Findings may be secondary to osteopenia. Subtle regions of bone metastasis could not be excluded. Soft tissues: Unremarkable. IMPRESSION: 1. Findings compatible with extensive hepatic metastasis. Findings new since 11/10/2015. 2. Diverticulitis. 3. Heterogeneity of the bone marrow. Findings may be secondary to osteopenia. Bone metastasis could not be excluded. Recommend follow-up with PET-CT imaging. 4. Please see above report for discussion of nonacute findings.
--- NOTE | 2022-04-15 15:15 | PC.NURSE ---
FAMILY CAME OUT AND SAID THEY DID NOT WANT TO GO TO THEY WOULD RATHER GO TO [facility] , CALLED THEM THEY HAVE NO BEDS AVAILABLE, DR VITALE SAYS TO WAIT HE WILL SEE WHAT THE CT SHOWS
--- NOTE | 2022-04-15 15:18 | PC.NURSE ---
pt and family updated on plan of care
--- NOTE | 2022-04-15 16:09 | PC.NURSE ---
PT AMBULATING TO BATHROOM WITH FAMILY
--- NOTE | 2022-04-15 16:15 | PC.NURSE ---
family at bedside
--- NOTE | 2022-04-15 17:12 | PC.NURSE ---
DR ERNESTO ALLISON
--- NOTE | 2022-04-15 17:18 | PC.NURSE ---
DR VITALE SPOKE WITH DR OROZCO HE HAS AGREED TO ADMIT PT , HOUSE CALLED FOR BED
--- NOTE | 2022-04-15 18:05 | PC.NURSE ---
2nd floor staff present to transport pt to room on 2nd floor
--- NOTE | 2022-04-15 18:07 | PC.NURSE ---
PT BEING TRANSPORTED FOR IN-PATIENT CARE
--- NOTE | 2022-04-15 18:11 | PC.NURSE ---
PT ARRIVED TO THE FLOOR AT THIS TIME
[2022-04-16] VITALS: BP 110/44; PULSE 90; RESP 18; TEMP 37.2; O2SAT 96
[2022-04-16 04:00] VITALS: BP 115/59; PULSE 82; RESP 18; TEMP 36.8; O2SAT 98
[2022-04-16 04:15] VITALS: BMI 26.8
--- NOTE | 2022-04-16 04:27 | PC.NURSE ---
Pt is alert and oriented x4, pt has been up to the restroom this shift with standby assist. Pt has complained of pain 1 time this shift, treated prn per mar. Pt has been resting throughout the shift with no other complaints. Pt abdomen is soft and tender, but reports it has gotten better. Pt is room air with O2 sats >90%.
[2022-04-16 06:44] LABS: Basophils % 0.2 % (0.1-2.0); Eosinophils # 0.1 K/mm3 (0.0-0.4); Eosinophils % 1.5 % (0.1-12.0); Hemoglobin 9.5 g/dL (12.2-16.2); Lymphocytes # 1.6 K/mm3 (0.7-4.5); Lymphocytes % 23.3 % (10-50); Mean Corpuscular HGB Conc 33.2 g/dL (31.8-35.4); Mean Corpuscular Hemoglobin 28.9 pg (27.0-31.2); Monocytes # 0.4 K/mm3 (0.1-1.0); Neutrophils # 4.8 K/mm3 (1.8-7.8); Platelet Count 369 K/mm3 (142-424)
[2022-04-16 06:47] LABS: Hematocrit 28.7 % (37.0-47.0)
[2022-04-16 06:50] LABS: Anion Gap 8.9 mEq/L (5-15); Blood Urea Nitrogen 9 mg/dl (7-17); Calcium 8.8 mg/dl (8.4-10.2); Carbon Dioxide 27 mmol/L (22.0-30.0); Chloride 100 mmol/L (98-107); Creatinine Clearance Estimated 42 mL/min (50-200); Estimated Glomerular Filt Rate 96 ml/min (>60); GFR (African American) 116 ML/MIN (>60); Glucose 93 mg/dl (74-100); Lipase 583 U/L (23-300); Potassium 3.9 mmoL/L (3.5-5.1); Sodium 132 mmol/L (136-145)
--- NOTE | 2022-04-16 07:15 | HMH.PHAINT ---
verified home medication list using list from outpatient pharmacy
--- NOTE | 2022-04-16 07:16 | P.CONPHA_ITS ---
[facility] Pharmacy VTE Monitoring - Patient Demographics Admission date: 04/16/22 Report Date: 04/16/22 Time: 07:16 Allergies/Adverse Reactions: Patient Allergies Penicillins Allergy (Intermediate, Verified 03/31/22 11:38) I-RASH codeine Adverse Reaction (Mild, Verified 03/31/22 11:38) NA-NAUSEA Height: 1.52 m Weight: 61.887 kg Patient Problems: Current Active Problems Pancreatitis (Acute) Diverticulitis (Acute) - VTE Risk Labs: VTE Related Lab Results Hgb 9.5 g/dL (12.2-16.2) L 04/16/22 06:06 Hct 28.7 % (37.0-47.0) L 04/16/22 06:06 Plt Count 369 K/mm3 (142-424) 04/16/22 06:06 BUN 9 mg/dl (7-17) 04/16/22 06:06 Creatinine 0.60 mg/dl (0.52-1.04) 04/16/22 06:06 Estimated Creat Clear 42 mL/min (50-200) 04/16/22 06:06 Clinical Trial Participant: No - Prophylaxis VTE Prophylaxis Ordered?: Yes Types of VTE Prophylaxis: TEDS Knee High
[2022-04-16 08:00] VITALS: BP 113/58; PULSE 76; RESP 16; TEMP 36.6; O2SAT 95
--- NOTE | 2022-04-16 08:21 | HMH.HP ---
*Admission Date: 04/16/22 *Chief complaint: Abdominal pain *History of present illness: Ms Rivas is an 81-year-old female with a history of breast cancer with mastectomy years ago, migraine headaches, GERD and chronic back pain who presented to [facility] ER after experiencing worsening abdominal/back pain associated with nausea and vomiting for the previous 2 weeks. She was seen by Dr. Perez, her PCP, in the office last week and was treated with a PPI.. She has been unable to eat and drink due to be reflux. She denies having a fever. She thinks she may have had diarrhea once but usually has to take a laxative. She denies any melena or hematochezia. With evaluation in the emergency room she was found to be afebrile . She did have elevated liver function studies. CT of the abdomen/pelvis revealed findings compatible with extensive hepatic metastasis which is new since exam on 11/10/2015. Also diverticulitis. Also heterogenic of the bone marrow possibly secondary to osteopenia. Bone metastasis could not be excluded. She was started on IV fluids and given Levaquin IV. She was also given hydromorphone for pain. This a.m. she is trying to vomit. With second visit she had walked to the bathroom. She did not vomit. She describes some right shoulder and lower back pain. [facility] History Medical History: Reports:: Cancer, Gastroesophageal Reflux Disease(GERD), Migraine, Osteoporosis *Have you ever received a pneumonia vaccine?: Yes *Have you received a flu vaccine this season?: Yes Other Medical History: Reports: Arthritis, Osteoporosis, Other Laterality Cases: Left: Mastectomy, Other, Right: Carpal Tunnel Release Other Surgeries: Yes: Appendectomy, Colonoscopy, , Hysterectomy-Total - *Social History Last grade of school completed: 9th or 10th Smoking Status: Never smoker Alcohol Intake: never *Occupational Status:: retired Housing: house Household Members: none *Travel in the last 8 weeks: None Family Hx:: Cancer, Heart Attack, no Diabetes Review of Systems - Constitutional Denies fever(s) - Eyes Denies change in vision - ENT Denies ear pain, Denies sore throat - *Cardiovascular Denies chest pain, Denies shortness of breath, Denies leg swelling - *Respiratory Denies chest congestion, Denies cough, Denies shortness of breath - *Gastrointestinal Reports abdominal pain, Reports nausea, Reports vomiting, Denies change in stools, Denies vomiting blood - *Genitourinary Denies painful urination - *Musculoskeletal Reports joint pain (Back), Denies abnormal walking - *Neurologic Denies seizure-like activity, Denies dizziness, Denies fainting Meds Home Medications Medication Instructions Recorded Confirmed Type hydrocodone 7.5 mg-acetaminophen 1 tab PO Q6HP PRN 05/22/18 04/16/22 History 325 mg tablet zolpidem 10 mg tablet 10 mg PO HSP PRN tab 10/13/19 04/16/22 History Pantoprazole Sodium [Protonix 40mg 40 mg PO HS 04/16/22 04/16/22 History tablet] Allergies Allergy/AdvReac Type Severity Reaction Status Date / Time Penicillins Allergy Intermediate I-RASH Verified 03/31/22 11:38 codeine AdvReac Mild NA-NAUSEA Verified 03/31/22 11:38 Exam Vital signs and Labs for Last 24 Hours: Temp Pulse Resp BP Pulse Ox 98.3 F 82 18 115/59 L 98 04/16/22 04:00 04/16/22 04:00 04/16/22 04:00 04/16/22 04:00 04/16/22 04:00 Laboratory Results - last 24 hr 04/15/22 13:45: Urine Color Yellow, Urine Appearance Clear, Urine pH 5.5, Ur Specific [place] 1.025, Urine Protein 1+, Urine Glucose (UA) Negative, Urine Ketones Negative, Urine Blood Negative, Urine Nitrate Positive, Urine Bilirubin 2+ A, Urine Urobilinogen 4.0, Ur Leukocyte Esterase Negative, Urine RBC Occasional, Urine WBC 3-5, Ur Squamous Epith Cells Occasional, Urine Bacteria Trace, Urine Mucus Trace 04/15/22 14:08: WBC 8.6, RBC 3.65 L, Hgb 10.4 L, Hct 32.2 L, MCV 88.4, MCH 28.5, MCHC 32.3, RDW 14.1, Plt Count 385, MPV 7.2 L
--- NOTE | 2022-04-16 08:50 | PC.NURSE ---
patient noted to have continued nausea after zofran, and continues to dry heave. alerted md of this, and that current medication gave no relief. no new orders at this time.
[2022-04-16 11:30] VITALS: BMI 26.7
[2022-04-16 12:00] VITALS: BP 108/63; PULSE 73; RESP 16; TEMP 36.6; O2SAT 98
--- NOTE | 2022-04-16 13:45 | PC.NURSE ---
Addendum entered by Nicole Guaman RN 04/16/22 13:49: no other orders for nausea at this time. Original Note: called and spoke with gibson in dr. razo office. relayed that patient continues to vomit and dry heave, is not due zofran until 1544. patient is also complaining of a migraine which she normally takes immatrex 50mg for. patient is also relaying that she felt some of the nausea and migraine are related to the fact she had not ate. after speaking with md arreaga returned to the line and stated patient could have the immatrex 50mg po once.
[2022-04-16 16:00] VITALS: BP 125/64; PULSE 72; RESP 16; TEMP 36.7; O2SAT 98
[2022-04-16 20:00] VITALS: BP 121/64; PULSE 97; RESP 20; TEMP 36.6; O2SAT 98
--- NOTE | 2022-04-16 20:13 | PC.NURSE ---
patient has rated abdominal pain a 5 this shift. has been assisted to the bathroom, voiding appropriately. has had nausea and vomiting. did note that promethazine has seemed to help some. starting to complain of a migraine but wanted her imatrix scheduled tonight. vitals stable. medicated per nov. family has been in and out. eating ice chips. wanting to try food stating she thought it might help her migraine and nausea.
[2022-04-17 04:00] VITALS: BP 132/69; PULSE 82; RESP 18; TEMP 37.4; O2SAT 98
--- NOTE | 2022-04-17 04:27 | PC.NURSE ---
PT HAS RESTED INTERMITTENTLY THIS SHIFT. SHE COMPLAINED OF ABD PAIN AT THE BEGINNING OF THE SHIFT ONE TIME AND WAS MEDICATED PER MAR FOR PAIN. ABDOMEN REMAINS SOFT AND TENDER. SHE HAS AMBULATED TO THE BATHROOM WITH ONE ASSIST. LUNG SOUNDS ARE CLEAR BILATERALLY. TOLERATING ROOM AIR WELL. VSS.
[2022-04-17 04:56] VITALS: BMI 26.9
[2022-04-17 07:39] VITALS: BP 119/60; PULSE 83; RESP 18; TEMP 36.7; O2SAT 100
[2022-04-17 09:03] LABS: Alanine Aminotransferase 61 U/L (12-78); Albumin Level 3.1 g/dl (3.5-5.0); Alkaline Phosphatase 686 U/L (38-126); Anion Gap 11.5 mEq/L (5-15); Aspartate Amino Transferase 104 U/L (14-36); Bilirubin,Total 2.7 mg/dl (0.2-1.3); Blood Urea Nitrogen 12 mg/dl (7-17); Calcium 8.9 mg/dl (8.4-10.2); Carbon Dioxide 25 mmol/L (22.0-30.0); Chloride 101 mmol/L (98-107); Creatinine Clearance Estimated 43 mL/min (50-200); Estimated Glomerular Filt Rate 96 ml/min (>60); GFR (African American) 116 ML/MIN (>60); Globulin 3.1 g/dL (1.3-3.2); Glucose 111 mg/dl (74-100); Potassium 3.5 mmoL/L (3.5-5.1); Sodium 134 mmol/L (136-145); Total Protein,Serum 6.2 g/dl (6.3-8.2)
[2022-04-17 09:27] LABS: Lipase 210 U/L (23-300)
--- NOTE | 2022-04-17 09:36 | HMH.ACPN2 ---
Internal Medicine - PN: Subj *Date: 04/17/22 *Time: 09:36 Interval history: Patient states she may feel little bit better today. She has had less nausea. She tolerated a small amount of clear liquids this AM. She did have a bowel movement yesterday. She has been up to the bathroom. Exam Vital signs and Labs for Last 24 Hours: Temp Pulse Resp BP Pulse Ox 98.0 F 83 18 119/60 100 04/17/22 07:39 04/17/22 07:39 04/17/22 07:39 04/17/22 07:39 04/17/22 07:39 Laboratory Results - last 24 hr 04/17/22 08:30: Sodium 134 L, Potassium 3.5, Chloride 101, Carbon Dioxide 25, Anion Gap 11.5, BUN 12 D, Creatinine 0.60, Estimated Creat Clear 43, Estimated GFR 96, Est GFR ( Amer) 116, Glucose 111 H, Calcium 8.9, Total Bilirubin 2.7 H, AST 104 H, ALT 61, Alkaline Phosphatase 686 H, Total Protein 6.2 L, Albumin 3.1 L, Globulin 3.1, Albumin/Globulin Ratio 1.0 L 04/17/22 08:30: Lipase 210 I & O for Last 24 hours: Intake & Output 04/14/22 04/15/22 04/16/22 04/17/22 11:59 11:59 11:59 11:59 Intake Total 723 / 723 1380 / 1380 Output Total 0 / 0 Balance 723 / 723 1380 / 1380 Weight 136 lb 6.753 oz 137 lb - Constitutional no acute distress, thin - *Routine Respiratory Exam Present: crackles (Right base) - *Routine Cardiovascular Exam Present: RRR - *Routine Abdominal Exam Present: soft, normoactive bowel sounds, tenderness (Epigastrium) - *Routine Extremities Exam Absent: edema, calf tenderness - *Routine Neurological Exam Present: alert, oriented X3 Assessment and Plan (1) Liver mass Status: Acute Category: Medical Code(s): R16.0 - Hepatomegaly, not elsewhere classified (2) Elevated liver function tests Status: Acute Category: Medical Code(s): R79.89 - Other specified abnormal findings of blood chemistry (3) GERD (gastroesophageal reflux disease) Status: Acute Category: Medical Code(s): K21.9 - Gastro-esophageal reflux disease without esophagitis (4) Diverticulitis Status: Acute Category: Medical Code(s): K57.92 - Diverticulitis of intestine, part unspecified, without perforation or abscess without bleeding (5) Pancreatitis Status: Acute Category: Medical Code(s): K85.90 - Acute pancreatitis without necrosis or infection, unspecified - Assessment and plan all Dx Assessment and Plan for all problems:: Continue with Levaquin. Continue with pain and nausea management. Possibly home tomorrow. Oncology consult with Dr. Valverde today.
[2022-04-17 15:18] VITALS: BP 130/60; PULSE 76; RESP 14; TEMP 37.3; O2SAT 98
--- NOTE | 2022-04-17 19:46 | PC.NURSE ---
patient has done okay this shift. has walked to bathroom with assistance. did have a large bm. sat up in chair for a little bit of time. imatrix order obtained from this shift. tolerating clears well. some nausea this evening but not severe. pain noted to be pretty constant in upper abdomen at times more severe than others and patient has been medicated per mar. family has been at bedside. rings out as needed.
[2022-04-17 20:00] VITALS: BP 108/65; PULSE 77; RESP 18; TEMP 36.9; O2SAT 97
[2022-04-18 04:00] VITALS: BP 133/59; PULSE 88; RESP 16; TEMP 36.7; O2SAT 96
--- NOTE | 2022-04-18 04:00 | PC.NURSE ---
pt with complaints of pain and nausea through the night, pt complains of abdominal pain and headache, pt alert and oriented, VSS, no changes from previous assessment, no other issues or concerns at this time.l
[2022-04-18 05:00] VITALS: BMI 26.9
[2022-04-18 07:49] LABS: Basophils % 0.2 % (0.1-2.0); Eosinophils # 0.1 K/mm3 (0.0-0.4); Eosinophils % 0.6 % (0.1-12.0); Hematocrit 31.6 % (37.0-47.0); Hemoglobin 10.5 g/dL (12.2-16.2); Lymphocytes # 1.1 K/mm3 (0.7-4.5); Lymphocytes % 12.6 % (10-50); Mean Corpuscular HGB Conc 33.1 g/dL (31.8-35.4); Mean Corpuscular Hemoglobin 29.1 pg (27.0-31.2); Mean Corpuscular Volume 87.9 fl (81-99); Mean Platelet Volume 7.2 fl (7.4-10.4); Monocytes # 0.4 K/mm3 (0.1-1.0); Monocytes % 4.1 % (1.7-9.3); Neutrophils # 7.3 K/mm3 (1.8-7.8); Neutrophils % 82.5 % (37.0-80.0); Platelet Count 370 K/mm3 (142-424); Red Cell Distribution Width 14.1 % (11.5-17.5); White Blood Count 8.9 K/mm3 (4.8-10.8)
[2022-04-18 07:59] LABS: Alanine Aminotransferase 61 U/L (12-78); Albumin Level 2.9 g/dl (3.5-5.0); Alkaline Phosphatase 667 U/L (38-126); Anion Gap 10.4 mEq/L (5-15); Aspartate Amino Transferase 118 U/L (14-36); Blood Urea Nitrogen 8 mg/dl (7-17); Calcium 8.3 mg/dl (8.4-10.2); Carbon Dioxide 25 mmol/L (22.0-30.0); Chloride 99 mmol/L (98-107); Creatinine Clearance Estimated 43 mL/min (50-200); Estimated Glomerular Filt Rate 118 ml/min (>60); GFR (African American) 143 ML/MIN (>60); Globulin 2.9 g/dL (1.3-3.2); Glucose 102 mg/dl (74-100); Lipase 34 U/L (23-300); Potassium 3.4 mmoL/L (3.5-5.1); Sodium 131 mmol/L (136-145); Total Protein,Serum 5.8 g/dl (6.3-8.2)
[2022-04-18 08:00] VITALS: BP 108/63; PULSE 88; RESP 18; TEMP 37.3; O2SAT 95
--- NOTE | 2022-04-18 08:43 | HMH.ACPN2 ---
Internal Medicine - PN: Subj *Date: 04/18/22 *Time: 08:43 Interval history: Patient states she had a rough night. He has abdominal pain and nausea. Has had the dry heaves. She has had minimal p.o. intake. Her bowels have moved. She has periodic shortness of breath. She was out of bed and sat in a chair yesterday and was miserable. Laboratory data this morning show white blood cell count of 8900 with a hemoglobin of 10.5 hematocrit of 31.6. Blood chemistries show sodium of 131 and potassium of 3.4. Total bilirubin is 3 with an AST of 118 and alkaline phosphatase of 667. Lipase is normal at 34. Exam Vital signs and Labs for Last 24 Hours: Temp Pulse Resp BP Pulse Ox 98.1 F 88 16 133/59 L 96 04/18/22 04:00 04/18/22 04:00 04/18/22 04:00 04/18/22 04:00 04/18/22 04:00 Laboratory Results - last 24 hr 04/17/22 08:30: Sodium 134 L, Potassium 3.5, Chloride 101, Carbon Dioxide 25, Anion Gap 11.5, BUN 12 D, Creatinine 0.60, Estimated Creat Clear 43, Estimated GFR 96, Est GFR ( Amer) 116, Glucose 111 H, Calcium 8.9, Total Bilirubin 2.7 H, AST 104 H, ALT 61, Alkaline Phosphatase 686 H, Total Protein 6.2 L, Albumin 3.1 L, Globulin 3.1, Albumin/Globulin Ratio 1.0 L 04/17/22 08:30: Lipase 210 04/18/22 07:28: WBC 8.9 D, RBC 3.60 L, Hgb 10.5 L, Hct 31.6 L, MCV 87.9, MCH 29.1, MCHC 33.1, RDW 14.1, Plt Count 370, MPV 7.2 L, Neut % (Auto) 82.5 H, Lymph % (Auto) 12.6, [place] % (Auto) 4.1, Eos % (Auto) 0.6, Baso % (Auto) 0.2, Neut # (Auto) 7.3, Lymph # (Auto) 1.1, [place] # (Auto) 0.4, Eos # (Auto) 0.1, Baso # (Auto) 0.0 04/18/22 07:28: Sodium 131 L, Potassium 3.4 L, Chloride 99, Carbon Dioxide 25, Anion Gap 10.4, BUN 8 D, Creatinine 0.50 L, Estimated Creat Clear 43, Estimated GFR 118, Est GFR ( Amer) 143 D, Glucose 102 H, Calcium 8.3 L, Total Bilirubin 3.0 H, AST 118 H, ALT 61, Alkaline Phosphatase 667 H, Total Protein 5.8 L, Albumin 2.9 L, Globulin 2.9, Albumin/Globulin Ratio 1.0 L, Lipase 34 I & O for Last 24 hours: Intake & Output 04/15/22 04/16/22 04/17/22 04/18/22 11:59 11:59 11:59 11:59 Intake Total 723 / 723 1380 / 1380 781 / 781 Output Total 0 / 0 Balance 723 / 723 1380 / 1380 781 / 781 Weight 136 lb 6.753 oz 137 lb 136 lb 15.924 oz - Constitutional no acute distress - *Routine Respiratory Exam Present: crackles (Right base) - *Routine Cardiovascular Exam Present: RRR - *Routine Abdominal Exam Present: soft, tenderness (Gastrium and right upper quadrant). Absent: normoactive bowel sounds (Minimal) - *Routine Extremities Exam Absent: edema, calf tenderness - *Routine Neurological Exam Present: alert, oriented X3 Assessment and Plan (1) Liver mass Status: Acute Category: Medical Code(s): R16.0 - Hepatomegaly, not elsewhere classified (2) Elevated liver function tests Status: Acute Category: Medical Code(s): R79.89 - Other specified abnormal findings of blood chemistry (3) GERD (gastroesophageal reflux disease) Status: Acute Category: Medical Code(s): K21.9 - Gastro-esophageal reflux disease without esophagitis (4) Diverticulitis Status: Acute Category: Medical Code(s): K57.92 - Diverticulitis of intestine, part unspecified, without perforation or abscess without bleeding (5) Pancreatitis Status: Acute Category: Medical Code(s): K85.90 - Acute pancreatitis without necrosis or infection, unspecified - Assessment and plan all Dx Assessment and Plan for all problems:: Continue with pain and nausea management. Oncology to visit tomorrow. We will try advancing diet with soft foods for her to pick and choose.
--- NOTE | 2022-04-18 10:44 | HMH.PTEV ---
Physical Therapy Evaluation Rehab PT IP Evaluation Start: 04/18/22 09:06 Freq: ONCE Status: Active Protocol: Document 04/18/22 10:35 PAULINE (Rec: 04/18/22 10:43 PAULINE [id number]) Subjective/History History History Ms Rivas is an 81-year-old female with a history of breast cancer with mastectomy years ago, migraine headaches, GERD and chronic back pain who presented to ER after experiencing worsening abdominal/back pain associated with nausea and vomiting for the previous 2 weeks. Subjective Subjective Pt reports feeling weak due to not eating much - pt and daughter report pt is leaving today Rehab PT IP Eval Objective Appearance Patient Behavior Appropriate,Cooperative Patient Orientation Place,Name,Age,Year Difficulty following instructions none Speech Pattern Appropriate,Soft-Spoken Ambulation Patient Able to Ambulate Yes Ambulation Observation IP General Gait Pattern Observation Shuffling Step Ambulation Distance (feet) 25 Ambulation Assistive Device None Ambulation Ability Supervision/Stand by,Contact Guard/Hand Hold Balance Ability to Arise Able, uses arms to help Sitting Balance Steady, safe Standing Balance Narrow stance w/o support Dynamic Sitting Balance Ability Good Dynamic Standing Balance Ability Fair Transfers Bed Transfer Ability Independent,Supervision/Stand by Sit to Stand Bed Transfer Ability Independent,Supervision/Stand by Rehab PT IP prob,goals,plan Problems Date of Evaluation: 04/18/22 PT IP Problems Self care Rehab Potential Rehab Potential Fair Equipment Needs Assistive Devices Rolling / Wheeled Walker Plan PT Intervention Plan Transfers,Gait,Therapeutic Exercise Discharge Plan PT Discharge Plan Pt to discharge home today - pt would benefit from skilled therapy to allow return to PLOF and HHPT was discussed with pt. Pt was agreeable to use RW as AD until strength improves and decided to wait
--- NOTE | 2022-04-18 10:57 | CARE MANAGER ---
Patient will require a rolling walker r/t weakness and needs more assist than a cane can provide.
--- NOTE | 2022-04-18 11:14 | PC.NURSE ---
waiting on walker before patient can be discharged.
--- NOTE | 2022-04-19 11:35 | HMH.DCSUM ---
General - General Admission date:: 04/15/22 Discharge date: 04/18/22 HPI HPI: Ms Rivas is an 81-year-old female with a history of breast cancer with mastectomy years ago, migraine headaches, GERD and chronic back pain who presented to [facility] ER after experiencing worsening abdominal/back pain associated with nausea and vomiting for the previous 2 weeks. She was seen by Dr. Perez, her PCP, in the office last week and was treated with a PPI.. She has been unable to eat and drink due to be reflux. She denies having a fever. She thinks she may have had diarrhea once but usually has to take a laxative. She denies any melena or hematochezia. With evaluation in the emergency room she was found to be afebrile . She did have elevated liver function studies. CT of the abdomen/pelvis revealed findings compatible with extensive hepatic metastasis which is new since exam on 11/10/2015. Also diverticulitis. Also heterogenic of the bone marrow possibly secondary to osteopenia. Bone metastasis could not be excluded. She was started on IV fluids and given Levaquin IV. She was also given hydromorphone for pain. This a.m. she is trying to vomit. With second visit she had walked to the bathroom. She did not vomit. She describes some right shoulder and lower back pain. Hospital Course Hospital Course: The patient was admitted and started on Levaquin, antiemetics, and pain management. She did begin feeling better and had less nausea and was able to tolerate a small amount of clear liquids. By 04/18/2022, she was feeling a bit worse. She continued with abdominal pain and nausea and had minimal p.o. intake. Her bilirubin was elevated as was her AST and alkaline phosphatase. Her diet was advanced and oncology was consulted. Dr. Valverde was not available to see the patient until 04/19/2022. It was felt she was stable to discharge home and she will follow-up with Dr. Valverde on an outpatient basis on 04/19/2022. Objective Vital signs: Temp Pulse Resp BP Pulse Ox 99.1 F 88 18 108/63 L 95 04/18/22 08:00 04/18/22 08:00 04/18/22 08:00 04/18/22 08:00 04/18/22 08:00 Narrative: - Constitutional no acute distress - *Routine HEENT Exam Head: Present: normocephalic, atraumatic Eye: Present: PERRL. Absent: conjunctival icterus, scleral injection ENT: Present: mucous membranes moist. Absent: oropharynx clear - *Routine Neck Exam Present: supple. Absent: carotid bruit, lymphadenopathy, thyromegaly - *Routine Respiratory Exam Present: crackles (Right base) - *Routine Cardiovascular Exam Present: RRR - *Routine Abdominal Exam Present: soft, tenderness (Right upper quadrant), organomegaly (Right upper quadrant). Absent: normoactive bowel sounds (Diminished), guarding - *Routine Rectal Exam Rectal:: deferred - *Routine Genitalia Exam Genitalia:: deferred - *Routine Extremities Exam Present: full ROM, pulses intact. Absent: edema, calf tenderness - *Routine Neurological Exam Present: alert, oriented X3 DS: Diagnosis - Discharge Diagnosis (1) Liver mass Status: Acute (2) Elevated liver function tests Status: Acute (3) GERD (gastroesophageal reflux disease) Status: Acute (4) Diverticulitis Status: Acute (5) Pancreatitis Status: Acute Discharge Plan - Patient Discharge Instructions ACTIVITY: Limited activity DIET: advance to your usual diet Patient Instructions: DI for Pancreatitis, DI for Diverticulitis - Follow up Plan Follow up with: Eileen Valverde MD [Staff Physician] - 04/19/22 2:30 pm Steven Perez MD [Primary Care Provider] - 04/25/22 10:40 am Disposition: Home, Self-Care Condition at discharge:: Stable Home Medications: Home Medications Medication Instructions Recorded Confirmed Type zolpidem 10 mg tablet 10 mg PO HSP PRN tab 10/13/19 04/16/22 History Pantoprazole Sodium [Protonix 40mg 40 mg PO HS 04/16/22 04/16/22 History tablet]
--- NOTE | 2022-04-24 13:21 | CARE MANAGER ---
Attempted to contact patient related to hospital discharge. No answer. DIANA Beckford
== END 2022-04-18 12:40 | disposition home or self-care (01) ==
LOC: ER 15:15 → 2ND 18:06
PROVIDERS: Admitting Provider Family Medicine; Emergency Provider Emergency Medicine; PCP Internal Medicine; Visit Provider Family Medicine
DX: K85.90 Acute pancreatitis without necrosis or infection, unspecified (principal); R16.0 Hepatomegaly, not elsewhere classified; K21.9 Gastro-esophageal reflux disease without esophagitis; K57.92 Diverticulitis of intestine, part unspecified, without perforation or abscess without bleeding; M85.80 Other specified disorders of bone density and structure, unspecified site; Z20.822 Contact with and (suspected) exposure to COVID-19
CPT/HCPCS: G0378; 36415; 71045; 74177; 80048; 80053; 81001; 83690; 84484; 85025; 97162; 99285; C9803; J1956; J2405; Q9967; U0003; U0005